=== PATIENT | female | born 1980 | race Caucasian/White ===

== ENCOUNTER 2016-12-12 12:25 | Emergency (ER) | payer OTHER ==
[2016-12-12 12:32] VITALS: BP 137/83; PULSE 81; TEMP 97.8; BMI 39.7
--- NOTE | 2016-12-12 13:32 | PDOC ---
History of Present Illness - General Chief Complaint: Cold Symptoms Stated Complaint: COUGH Time Seen by Provider: 12/12/16 13:04 History Source: Patient Exam Limitations: No Limitations - History of Present Illness Initial Comments: 12/12/16 13:26 36 yr female with cough with productive green phlegm for one week . Pt denies fever or chills, states headache and pressure. no ear pain or abdominal pain. history of asthma. Timing/Duration: reports: week Severity: reports: moderate Associated Symptoms: reports: chest pain/soreness, cough, facial pain, nasal congestion Past History - Past Medical History Allergies/Adverse Reactions: Allergies Allergy/AdvReac Type Severity Reaction Status Date / Time Penicillins Allergy Verified 12/12/16 12:31 Home Medications: Ambulatory Orders Methyldopa 1 tab PO BID 10/12/16 Azithromycin [Zithromax 250mg Tablets -] 250 mg PO UTDICT #6 tab 12/12/16 Benzonatate [Tessalon Pearls -] 200 mg PO TID #42 cap 12/12/16 Asthma: Yes HTN: Yes Other medical history: obesity - Surgical History Abdominal Surgery: Yes Cholecystectomy: Yes - Family Disease History Family Disease History: Diabetes: Grandparents, Mother, Heart Disease: Father - Psycho/Social/Smoking Cessation Hx Anxiety: No Suicidal Ideation: No Smoking History: Never smoked Have you smoked in the past 12 months: No Information on smoking cessation initiated: No Hx Alcohol Use: No Drug/Substance Use Hx: No Substance Use Type: None Respiratory Specific PMHX - Complaint Specific PMHX Angina: No Bronchitis: Yes Pneumonia: No Pulmonary Embolus: No TB (Tuberculosis): No Review of Systems - Review of Systems Able to Perform ROS?: Yes Is the patient limited Lao proficient: No Constitutional: No: Symptoms Reported HEENTM: Yes: Symptoms Reported Respiratory: Yes: Symptoms reported, Cough Cardiac (ROS): No: Symptoms Reported ABD/GI: No: Symptoms Reported : No: Symptoms Reported Musculoskeletal: No: Symptoms Reported Integumentary: No: Symptoms Reported *Physical Exam - Vital Signs Last Vital Signs Temp Pulse Resp BP Pulse Ox 97.8 F 81 17 137/83 97 12/12/16 12:29 12/12/16 12:29 12/12/16 12:29 12/12/16 12:29 12/12/16 12:29 - Physical Exam General Appearance: Yes: Nourished, Appropriately Dressed HEENT: positive: EOMI, SOLITARIO, TMs Normal, Pharynx Normal, Nasal Congestion Neck: positive: Supple. negative: Tender Respiratory/Chest: positive: Lungs Clear, Normal Breath Sounds. negative: Wheezing Cardiovascular: positive: Regular Rhythm, Regular Rate Gastrointestinal/Abdominal: positive: Normal Bowel Sounds, Soft Musculoskeletal: positive: Normal Inspection Extremity: positive: Normal Capillary Refill, Normal Inspection, Normal Range of Motion Integumentary: positive: Normal Color, Dry, Warm Neurologic: positive: Fully Oriented, Alert, Normal Mood/Affect, Normal Response , Motor Strength 03/12 ED Treatment Course - LABORATORY CBC & Chemistry Diagram: 12/12/16 13:41 Medical Decision Making - Medical Decision Making 12/12/16 13:29 cc: cough nasal congestion green phlegm will get CBC r/o CXR most likely viral vs bacterial 12/12/16 14:04 cbc is normal CXR is normal no active disease 12/12/16 14:17 *DC/Admit/Observation/Transfer Diagnosis at time of Disposition: Upper respiratory infection Qualifiers: URI type: unspecified URI Qualified Code(s): J06.9 - Acute upper respiratory infection, unspecified - Discharge Dispostion Disposition: HOME Condition at time of disposition: Good - Prescriptions Prescriptions: Benzonatate [Tessalon Pearls -] 200 mg PO TID #42 cap Azithromycin [Zithromax 250mg Tablets -] 250 mg PO UTDICT #6 tab - Patient Instructions Additional Instructions: take tessalone perles for cough as needed take Zpack as directed for 5 days drink pleanty of water to stay hydrated follow with your doctor for follow up
[2016-12-12 13:51] LABS: BASOPHIL 0.9 % (0-2.0); EOSINOPHIL 2.8 % (0-4.5); MCH 29.1 pg (25.7-33.7); MCHC 33.4 g/dl (32.0-36.0); MEAN CELL VOLUME 87.1 fl (80-96); MEAN PLT VOLUME 8.2 fl (7.5-11.1); NEUTROPHILS 57.7 % (42.8-82.8); PLATELET COUNT 310 K/MM3 (134-434); RDW 13.1 % (11.6-15.6); WHITE BLOOD COUNT 7.4 K/mm3 (4.0-10.0)
== END 2016-12-12 14:39 | disposition home or self-care (01) ==
LOC: JERFT 12:25
DX: J06.9 Acute upper respiratory infection, unspecified (principal); B97.89 Other viral agents as the cause of diseases classified elsewhere; I10 Essential (primary) hypertension; J45.909 Unspecified asthma, uncomplicated; E66.8 Other obesity; Z68.39 Body mass index [BMI] 39.0-39.9, adult
CPT/HCPCS: 36415; 71020-TC; 84703; 85025; 99281-25

== ENCOUNTER → 2017-03-28 | Emergency (ER) | payer OTHER ==
[~2017-03-28] MED LIST: ACETAMINOPHEN 325 MG TABLET (FP) ONE; ACETAMINOPHEN 325 MG TABLET (FP) PO ONE; AZITHROMYCIN 250 MG TABLET (FP) ONE; AZITHROMYCIN 250 MG TABLET (FP) PO ONE; KETOROLAC TROMETHAMINE 30 MG/1 ML VIAL IVPUSH ONE; KETOROLAC TROMETHAMINE 30 MG/1 ML VIAL ONE; METOCLOPRAMIDE HCL INJECTION 10 MG/2 ML VIAL IVPB ONE; METOCLOPRAMIDE HCL INJECTION 10 MG/2 ML VIAL ONE; SODIUM CHLORIDE 0.9% 1000 ML INFUS.BAG IV ONE
[2017-03-28 14:47] VITALS: BMI 39.7
[2017-03-28 16:03] LABS: BASOPHIL 0.6 % (0-2.0); EOSINOPHIL 0.9 % (0-4.5); MCH 29.2 pg (25.7-33.7); MCHC 34.1 g/dl (32.0-36.0); MEAN CELL VOLUME 85.6 fl (80-96); MEAN PLT VOLUME 8.6 fl (7.5-11.1); NEUTROPHILS 71.5 % (42.8-82.8); PLATELET COUNT 234 K/MM3 (134-434); RDW 13.4 % (11.6-15.6); WHITE BLOOD COUNT 9.2 K/mm3 (4.0-10.0)
[2017-03-28 16:24] LABS: INR 1.31 (0.82-1.09); PROTHROMBIN TIME (PATIENT) 14.5 SEC (9.98-11.88)
[2017-03-28 16:48] LABS: ALBUMIN 3.7 g/dl (3.4-5.0); ANION GAP 11 (8-16); BILIRUBIN,TOTAL 0.6 mg/dL (0.2-1.0); CALCIUM 8.5 mg/dL (8.5-10.1); CO2 26 mmol/L (21-32); COCKROFT - GAULT 198.3985; CREATININE 0.8 mg/dL (0.55-1.02); GLUCOSE,RANDOM 115 mg/dL (74-106); SGOT/AST 26 U/L (15-37); SGPT/ALT 17 U/L (12-78); TOT PROT 7.4 g/dl (6.4-8.2)
[2017-03-28 16:51] LABS: ALK PHOS 71 U/L (45-117); TROPONIN I < 0.02 ng/ml (0.00-0.05)
--- NOTE | 2017-03-28 17:07 | PDOC ---
*Physical Exam - Vital Signs Last Vital Signs Temp Pulse Resp BP Pulse Ox 101.3 F H 104 H 18 178/112 96 03/28/17 14:43 03/28/17 15:15 03/28/17 15:15 03/28/17 15:15 03/28/17 15:15 ED Treatment Course - LABORATORY CBC & Chemistry Diagram: 03/28/17 15:47 03/28/17 15:42 - ADDITIONAL ORDERS Additional order review: Laboratory Results 03/28/17 03/28/17 15:47 15:42 INR 1.31 H Sodium 138 Potassium 3.5 Chloride 101 Carbon Dioxide 26 Anion Gap 11 BUN 6 L D Creatinine 0.8 Creat Clearance w eGFR > 60 Random Glucose 115 H Calcium 8.5 Total Bilirubin 0.6 D AST 26 D ALT 17 D Alkaline Phosphatase 71 D Creatine Kinase 63 Troponin I < 0.02 Total Protein 7.4 Albumin 3.7 03/28/17 15:42 Influenza Types A,B Antigen ([facility]) - Final Nasopharyngeal Swab - Final 03/28/17 15:47 RBC 4.58 MCV 85.6 MCHC 34.1 RDW 13.4 MPV 8.6 Neutrophils % 71.5 D Lymphocytes % 14.6 D Monocytes % 12.4 H Eosinophils % 0.9 Basophils % 0.6 - Medications Given in the ED: ED Medications Discontinued Medications Generic Name Dose Route Start Last Admin Trade Name Kerry PRN Reason Stop Dose Admin Ketorolac Tromethamine 30 mg 03/28/17 15:35 03/28/17 15:59 Toradol Injection - IVPUSH 03/28/17 15:36 30 mg ONCE ONE Administration Medical Decision Making - Medical Decision Making 03/28/17 17:07 Pt seen by the Advanced Practice Provider under my direct supervision Pt interviewed and examined Ancillary studies reviewed I agree with plan as outlined by the Advanced Practice Provider HAYDE Black *DC/Admit/Observation/Transfer Diagnosis at time of Disposition: Pneumonia - Discharge Dispostion Disposition: HOME Condition at time of disposition: Stable - Prescriptions Prescriptions: Azithromycin [Zithromax -] 250 mg PO DAILY #4 tablet - Referrals Referrals: Macy García MD [Primary Care Provider] - - Patient Instructions Printed Discharge Instructions: DI for Pneumonia -- Adult Additional Instructions: Your Discharge Instructions: You must call primary care physician within 24 hours to arrange follow-up. Return to the Emergency Department with any new, persistent or worsening symptoms, for fever, chills, SOB, dizziness or any other concerning changes that may occur. - Post Discharge Activity Work/School Note: Back to Work
[2017-03-28 17:08] LABS: MAGNESIUM 1.7 mg/dL (1.8-2.4)
--- NOTE | 2017-03-28 17:58 | PDOC ---
History of Present Illness - General Chief Complaint: Chest Pain Stated Complaint: CHEST PAIN/ HIGH BLOOD PRESSURE Time Seen by Provider: 03/28/17 15:09 - History of Present Illness Initial Comments: 03/28/17 17:51 CHIEF COMPLAINT: chest pain HISTORY OF PRESENT ILLNESS: 36 yo F with hx of HTN and asthma presents to ED with c/o chest discomfort, high blood pressure, and palpitations since yesterday. She reports that she woke up yesterday "feeling off" and all day she took her blood pressure and it was elevated, and her HR was 130-135. She denies URI symptoms and denies any nausea, vomiting diarrhea. No recent travel or sick contacts. PAST MEDICAL HISTORY: Denies past medical history FAMILY HISTORY: Mother - heart disease, passed at 63, grandparents with heart disease SOCIAL HISTORY:Denies tobacco, alcohol, illicit drug use. SURGICAL HISTORY: Denies ALLERGIES: PCN REVIEW OF SYSTEMS General/Constitutional: Denies fever or chills. HEENT: Denies change in vision. Denies ear pain or discharge. Denies sore throat. Cardiovascular: "Chest discomfort." Denies chest pain or shortness of breath. Respiratory: Denies cough, wheezing, or hemoptysis. Gastrointestinal: Denies nausea, vomiting, diarrhea or constipation. Denies rectal bleeding. Genitourinary: Denies dysuria, frequency, or change in urination. Musculoskeletal: Denies joint or muscle swelling or pain. Denies neck or back pain. Skin and breasts: Denies rash or easy bruising. Neurologic: "Pounding headache." Denies vertigo, loss of consciousness, or loss of sensation. PHYSICAL EXAM General Appearance: Well-appearing, appropriately dressed. No apparent distress. HEENT: EOMI, PERRLA, normal ENT inspection, normal voice, TMs normal, pharynx normal. No conjunctival pallor. No photophobia, scleral icterus. Respiratory/Chest: Lungs CTAB. Cardiovascular: RRR. S1, S2. Gastrointestinal/Abdominal: Normal bowel sounds. Abdomen soft, non-distended. No tenderness or rebound tenderness. No organomegaly, pulsatile mass, guarding , hernia, hepatomegaly, splenomegaly. Musculoskeletal/Extremities: Normal inspection. FROM of all extremities, normal capillary refill. Pelvis Stable. No CVA tenderness. No tenderness to extremities, pedal edema, swelling, erythema or deformity. Integumentary: Appropriate color, dry, warm. No cyanosis, erythema, jaundice or rash Neurologic: kennel aide II-XII intact. Fully oriented, alert. Appropriate mood/affect. Motor strength 5/5. No appreciable EOM palsy, facial droop or sensory deficit. 03/28/17 19:12 Past History - Past Medical History Allergies/Adverse Reactions: Allergies Allergy/AdvReac Type Severity Reaction Status Date / Time Penicillins Allergy Verified 03/28/17 14:43 Home Medications: Ambulatory Orders Methyldopa 1 tab PO BID 10/12/16 Albuterol Sulfate Inhaler - [Ventolin Hfa Inhaler -] 2 puff IH ASDIR PRN Azithromycin [Zithromax -] 250 mg PO DAILY #4 tablet 03/28/17 Asthma: Yes HTN: Yes - Surgical History Abdominal Surgery: Yes Cholecystectomy: Yes - Family Disease History Family Disease History: Diabetes: Grandparents, Mother, Heart Disease: Father - Psycho/Social/Smoking Cessation Hx Anxiety: No Suicidal Ideation: No Smoking History: Never smoked Have you smoked in the past 12 months: No Hx Alcohol Use: No Drug/Substance Use Hx: No Substance Use Type: None Respiratory Specific PMHX - Complaint Specific PMHX Angina: No Bronchitis: Yes Pneumonia: No Pulmonary Embolus: No TB (Tuberculosis): No *Physical Exam - Vital Signs Last Vital Signs Temp Pulse Resp BP Pulse Ox 101.3 F H 104 H 18 178/112 96 03/28/17 14:43 03/28/17 15:15 03/28/17 15:15 03/28/17 15:15 03/28/17 15:15 ED Treatment Course - LABORATORY CBC & Chemistry Diagram: 03/28/17 15:47 03/28/17 15:42 - ADDITIONAL ORDERS Additional order review: Laboratory Results 03/28/17 03/28/17 15:47 15:42 INR 1.31 H Sodium 138 Potassium 3.5 Chloride 101 Carbon Dioxide 26 Anion Gap 11 BUN 6 L D Creatinine 0.8 Creat Clearance w eGFR > 60 Random Glucose 115 H Calcium 8.5 Magnesium 1.7 L Total Bilirubin 0.6 D AST 26 D ALT 17 D Alkaline Phosphatase 71 D Creatine Kinase 63 Troponin I < 0.02 Total Protein 7.4 Albumin 3.7 03/28/17 15:42 Influenza Types A,B Antigen ([facility]) - Final Nasopharyngeal Swab - Final 03/28/17 15:47 RBC 4.58 MCV 85.6 MCHC 34.1 RDW 13.4 MPV 8.6 Neutrophils % 71.5 D Lymphocytes % 14.6 D Monocytes % 12.4 H Eosinophils % 0.9 Basophils % 0.6 - RADIOLOGY Radiology Studies Ordered: Category Date Time Status CHEST PA & LAT [RAD] Stat Radiology 03/28/17 15:25 Taken - Medications Given in the ED: ED Medications Discontinued Medications Generic Name Dose Route Start Last Admin Trade Name Freq PRN Reason Stop Dose Admin Ketorolac Tromethamine 30 mg 03/28/17 15:35 03/28/17 15:59 Toradol Injection - IVPUSH 03/28/17 15:36 30 mg ONCE ONE Administration Medical Decision Making - Medical Decision Making 03/28/17 17:58 36 yo F with hx of HTN and asthma presents to ED with c/o chest discomfort, high blood pressure, and palpitations since yesterday. -CBC, CMP, PT/INR, blood cx, lactic acid -EKG -Influenza swab -Toradol, IVF Labs: unremarkable, flu swab negative. Patient reassessed; states she is still feeling headache but otherwise feels much better and that her chest pain has mostly resolved. Discussed case with attending MD Paez, who states that elevated BP and HR likely secondary to viral syndrome. Will order IVF and Tylenol for treatment of KITCHEN. 03/28/17 18:03 Patient reassessed. Continues to complain of KITCHEN. -Reglan, Benadryl, IVF ordered Discussed case with MD Paez, will order head CT to r/o intracranial pathology. 03/28/17 19:04 Will also order chest CTA to r/o PE given tachycardia and SOB. Case discussed in detail with oncoming emergency provider including history, physical exam and ancillary studies. In brief, this patient is being seen in the ED for a chief complaint of: Pending results: CT, CTA Plan for disposition as follows: pending Oncoming NPA Marisa has assumed care for the patient and will complete the evaluation and treatment. *DC/Admit/Observation/Transfer Diagnosis at time of Disposition: Pneumonia Qualifiers: Pneumonia type: due to unspecified organism Laterality: left Lung location: upper lobe of lung Qualified Code(s): J18.1 - Lobar pneumonia, unspecified organism - Discharge Dispostion Disposition: HOME Condition at time of disposition: Stable - Prescriptions Prescriptions: Azithromycin [Zithromax -] 250 mg PO DAILY #4 tablet - Referrals Referrals: Macy García MD [Primary Care Provider] - - Patient Instructions Printed Discharge Instructions: DI for Pneumonia -- Adult Additional Instructions: Your Discharge Instructions: You must call primary care physician within 24 hours to arrange follow-up. Return to the Emergency Department with any new, persistent or worsening symptoms, for fever, chills, SOB, dizziness or any other concerning changes that may occur. - Post Discharge Activity Work/School Note: Back to Work
[2017-03-28 18:19] LABS: URINE APPEARANCE CLEAR; URINE BILIRUBIN NEGATIVE (NEGATIVE); URINE BLOOD NEGATIVE (NEGATIVE); URINE COLOR DKYELLOW; URINE GLUCOSE (UA) NEGATIVE (NEGATIVE); URINE KETONE 1+ (NEGATIVE); URINE LEUK ESTERASE NEGATIVE (NEGATIVE); URINE NITRITE NEGATIVE (NEGATIVE); URINE UROBILINOGEN NEGATIVE E.U./dl (0.2-1.0)
[2017-03-28 18:21] LABS: URINE PROTEIN 2+ (NEGATIVE)
[2017-03-28 18:29] LABS: URINE MUCUS MODERATE; URINE RBC 1 /hpf (0-3); URINE WBC 3 /hpf (3-5)
--- NOTE | 2017-03-28 20:49 | PDOC ---
*Physical Exam - Vital Signs Last Vital Signs Temp Pulse Resp BP Pulse Ox 101.3 F H 99 H 18 139/89 97 03/28/17 14:43 03/28/17 18:44 03/28/17 18:44 03/28/17 18:44 03/28/17 18:44 ED Treatment Course - LABORATORY CBC & Chemistry Diagram: 03/28/17 15:47 03/28/17 15:42 - ADDITIONAL ORDERS Additional order review: Laboratory Results 03/28/17 03/28/17 03/28/17 18:08 15:47 15:42 INR 1.31 H Sodium 138 Potassium 3.5 Chloride 101 Carbon Dioxide 26 Anion Gap 11 BUN 6 L D Creatinine 0.8 Creat Clearance w eGFR > 60 Random Glucose 115 H Calcium 8.5 Magnesium 1.7 L Total Bilirubin 0.6 D AST 26 D ALT 17 D Alkaline Phosphatase 71 D Creatine Kinase 63 Troponin I < 0.02 Total Protein 7.4 Albumin 3.7 Urine Color Dkyellow Urine Appearance Clear Urine pH 5.0 Urine Protein 2+ H Urine Glucose (UA) Negative Urine Ketones 1+ H Urine Blood Negative Urine Nitrite Negative Urine Bilirubin Negative Urine Urobilinogen Negative Ur Leukocyte Esterase Negative Urine RBC 1 Urine WBC 3 Ur Epithelial Cells Rare Urine Mucus Moderate Urine HCG, Qual Negative 03/28/17 15:42 Influenza Types A,B Antigen ([facility]) - Final Nasopharyngeal Swab - Final 03/28/17 15:47 RBC 4.58 MCV 85.6 MCHC 34.1 RDW 13.4 MPV 8.6 Neutrophils % 71.5 D Lymphocytes % 14.6 D Monocytes % 12.4 H Eosinophils % 0.9 Basophils % 0.6 - Medications Given in the ED: ED Medications Discontinued Medications Generic Name Dose Route Start Last Admin Trade Name Freq PRN Reason Stop Dose Admin Acetaminophen 650 mg 03/28/17 17:49 03/28/17 18:43 Tylenol - PO 03/28/17 17:50 650 mg ONCE ONE Administration Diphenhydramine HCl 25 mg 03/28/17 18:32 03/28/17 19:24 Benadryl Injection - IVPUSH 03/28/17 18:33 25 mg ONCE ONE Administration Ketorolac Tromethamine 30 mg 03/28/17 15:35 03/28/17 15:59 Toradol Injection - IVPUSH 03/28/17 15:36 30 mg ONCE ONE Administration Metoclopramide HCl 10 mg 03/28/17 18:32 03/28/17 19:24 Reglan Injection - IVPB 03/28/17 18:33 10 mg ONCE ONE Administration Sodium Chloride 1,000 ml 03/28/17 18:04 03/28/17 18:43 Normal Saline - IV 03/28/17 18:05 1,000 ml ONCE ONE Administration Medical Decision Making - Medical Decision Making 03/28/17 20:49 Endorsed to me by HAYDE Marroquin to follow CT scan and disposition 03/28/17 21:38 CT scan reviewed with the patient Patient Name: Meme Yip THIS IS A PRELIMINARY REPORT FROM [facility] EXAM: CT angiogram chest IMAGES: [id number] DATE OF SERVICE: 2017-03-28 20:10:39.0 HISTORY:Rule out PE COMPARISON: None. FINDINGS: 1. There is a large, approximately 3 cm, area of nodular pulmonary consolidation in the left lower lobe. There is a smaller, approximately 1 cm, area of nodular consolidation in the adjacent left lower lobe. In the proper clinical setting this could represent pneumonia. However, in the absence of evidence of infectious etiology , malignancy needs to be considered. There is no evidence of pneumothorax or pleural fluid collection. 2. The heart appears to be normal size. 3. The thoracic aorta is normal in appearance. 4. Opacification of the pulmonary arteries is not adequate for a pulmonary arteriogram quality study. There are no large central pulmonary artery emboli. However, significant pulmonary artery emboli could be missed due to to technique. 5. There is evidence of fatty infiltration/steatosis of the liver. 6. Previous cholecystectomy with surgical clips in the gallbladder fossa. THIS DOCUMENT HAS BEEN ELECTRONICALLY SIGNED Tatyana Boucher MD 03/28/2017 21:11 EWA Tapia Please call [facility] [phone] with questions. Patient Name: Meme Yip THIS IS A PRELIMINARY REPORT FROM [facility] EXAM: CT head without contrast IMAGES: 73 DATE OF SERVICE: 2017-03-28 19:56: 37.0 HISTORY:Headache COMPARISON: None. FINDINGS: 1. There is no evidence of an acute intracranial process, intracranial hemorrhage or mass effect. 2. The ventricles are normal size. 3. The visualized portions of the orbits, paranasal and mastoid sinuses are notable for a moderate-sized polyp or retention cyst in the right maxillary sinus. THIS DOCUMENT HAS BEEN ELECTRONICALLY SIGNED Tatyana Boucher MD 03/28/2017 20:56 EWA Richards. Please call [facility] [phone] with questions. will treat for pneumonia with zithromax inst patient to f/u with pmd for further eval after completion of antibx I discussed the physical exam findings, ancillary test results and final diagnoses with the patient. I answered all of the patient's questions. The patient was satisfied with the care received and felt comfortable with the discharge plan and treatment plan. The Patient agrees to follow up with the primary care physician within 24-72 hours. *DC/Admit/Observation/Transfer Diagnosis at time of Disposition: Pneumonia Qualifiers: Pneumonia type: due to unspecified organism Laterality: left Lung location: upper lobe of lung Qualified Code(s): J18.1 - Lobar pneumonia, unspecified organism - Discharge Dispostion Disposition: HOME Condition at time of disposition: Stable - Prescriptions Prescriptions: Azithromycin [Zithromax -] 250 mg PO DAILY #4 tablet - Referrals Referrals: Macy García MD [Primary Care Provider] - - Patient Instructions Printed Discharge Instructions: DI for Pneumonia -- Adult Additional Instructions: Your Discharge Instructions: You must call primary care physician within 24 hours to arrange follow-up. Return to the Emergency Department with any new, persistent or worsening symptoms, for fever, chills, SOB, dizziness or any other concerning changes that may occur. - Post Discharge Activity Work/School Note: Back to Work
[2017-03-28 21:56] VITALS: BP 161/97; PULSE 89; TEMP 98
--- NOTE | 2017-03-29 14:05 | EKG ---
Test Reason : Blood Pressure : / mmHG Vent. Rate : 110 BPM Atrial Rate : 110 BPM P-R Int : 164 ms QRS Dur : 082 ms QT Int : 332 ms P-R-T Axes : 024 040 004 degrees QTc Int : 449 ms SINUS TACHYCARDIA POSSIBLE LEFT ATRIAL ENLARGEMENT LOW VOLTAGE QRS SEPTAL INFARCT , AGE UNDETERMINED ABNORMAL ECG WHEN COMPARED WITH ECG OF 20-SEP-2014 13:53, VENT. RATE HAS INCREASED BY 42 BPM Confirmed by ALEJANDRO ALBRIGHT MD ([id number]) on 03/29/2017 2:05:44 PM Referred By: ER Confirmed By:ALEJANDRO ALBRIGHT MD
== END | disposition home or self-care (01) ==
LOC: JER 14:39
PROC: 3E033GC Introduction of Other Therapeutic Substance into Peripheral Vein, Percutaneous Approach (ICD-10-PCS; principal; 2017-03-28)
PROC: 3E0333Z Introduction of Anti-inflammatory into Peripheral Vein, Percutaneous Approach (ICD-10-PCS; 2017-03-28)
DX: J18.9 Pneumonia, unspecified organism (principal); I10 Essential (primary) hypertension; J45.909 Unspecified asthma, uncomplicated
CPT/HCPCS: 36415; 70450-TC; 71020-TC; 71275-TC; 80053; 81003; 81015; 82550; 83735; 84484; 84703; 85025; 85610; 87040; 87086; 87804; 93005; 93010; 96374; 96375; 99285-25